=== PATIENT | female | born 1970 | race Caucasian/White ===

== ENCOUNTER → 2017-09-01 | Outpatient (CLI) | payer BC ==
[2017-09-01 14:22] VITALS: BP 178/83; PULSE 95; RESP 16; TEMP 98.4; BMI 52.7
--- NOTE | 2017-09-01 14:41 | P.HPBAR ---
Bariatric H&P - History & Physicial H&P Date: 09/01/17 History & Physicial: Visit/CC: INITIAL VISIT Patient initial contact: Initial weight: 139.253 kg Initial weight in pounds: 307.00 Height: 5 ft 4 in Initial BMI: 52.7 Last weight: Current weight: 139.253 kg Current weight in pounds: 307.00 Current BMI: 52.7 [place] body weight (based on NIH guidelines): 54.431 kg Excess body weight loss: 0.0% The patient is a 47 year-old F who presents for Bariatric Assessment. Patient seen today in the bariatric clinic as a new patient. Interested in bariatric surgery. Severed with her weight for the majority overlying. She's tried a variety of different weight loss methods without long-standing success. Patient suffers from diabetes, hypertension, hypothyroid, mild heartburn symptoms. Denies DVT or dysphagia. She has not had a sleep study. She is undecided as it pertains to sleeve gastrectomy and gastric bypass for surgical weight loss. No recent upper endoscopy. Review of Systems The patient denies any acute changes in vision or hearing, no dysphagia or odynophagia, no chest pain or shortness of breath, no dysuria or hematuria, no headache, no runny nose, no rectal bleeding or melena, no unexplained weight loss Past Medical History Past Medical History: Diabetes Mellitus, GERD/Reflux, Hyperlipidemia, Hypertension, Thyroid Disorder Additional Past Medical History / Comment(s): HX. KIDNEY STONE History of Any Multi-Drug Resistant Organisms: None Reported Past Surgical History: Appendectomy, Section, Hysterectomy Additional Past Surgical History / Comment(s): APPENDECTOMY A CHILD Past Anesthesia/Blood Transfusion Reactions: Family History of Problems w/ Anesthesia, Motion Sickness, Postoperative Nausea & Vomiting (PONV) Additional Past Anesthesia/Blood Transfusion Reaction / Comm: RIDES IN FRONT SEAT OF CAR- HAS TROUBLE IN BOATSMOM & DAUGHTER HX. PONV Smoking Status: Never smoker - Past Family History Mother Family Medical History: Cancer Additional Family Medical History / Comment(s): CERVICAL & BREAST CA Surgical - Exam Vital Signs Temp Pulse Resp BP 98.4 F 95 16 178/83 09/01/17 14:17 09/01/17 14:17 09/01/17 14:17 09/01/17 14:17 Physical exam: General: Well-developed, well-nourished HEENT: Normocephalic, sclerae nonicteric Abdomen: Nontender, nondistended Extremities: No edema Neuro: Alert and oriented Bariatric Assessment & Plan (1) Morbid obesity Narrative/Plan: Options of bariatric surgical procedures discussed in detail with the patient. The risks and benefits of both a gastric bypass and the sleeve gastrectomy reviewed. The anticipated percentage of weight loss with both surgeries was reviewed as well. The patient remains somewhat interested in gastric bypass at this time. She is most interested in the slightly increased success rate at remission of diabetes with the gastric bypass versus the sleeve gastrectomy. She is requesting that we help make an appointment for her to see a bariatric surgeon that performs a gastric bypass on a regular basis. Meanwhile she will continue to investigate both surgeries and notify me of her decision. Status: Acute Bariatric Checklist Checklist: Plan: Checklist: EGD: 1. Hiatal hernia: 2. H. Pylori: HgbA1c: Vitamin D: Smoking: Never smoker Primary care physician referral: Psychiatry clearance: Cardiology clearance: Sleep study: Diet journal: VTE risk score: VTE risk level: Rehab needs at discharge:
== END | disposition home or self-care (01) ==
LOC: BARWHC3 13:24
PROVIDERS: ATTEND Surgery
DX: E66.01 Morbid (severe) obesity due to excess calories (principal); E11.9 Type 2 diabetes mellitus without complications; I10 Essential (primary) hypertension; E03.9 Hypothyroidism, unspecified; Z68.43 Body mass index [BMI] 50.0-59.9, adult
CPT/HCPCS: 99211

== ENCOUNTER → 2018-12-13 | Outpatient (CLI) | payer OTHER ==
--- NOTE | 2018-12-14 08:25 | MM ---
Reason for exam: screening (asymptomatic). Baseline mammogram. History: Family history of breast cancer in mother at age 40. Physical Findings: Nurse did not find any significant physical abnormalities on exam. MG Screening Mammo w CAD Bilateral CC and MLO view(s) were taken. There are scattered fibroglandular densities. Circumscribed 5mm nodule central 1 o'clock right breast. 6 month follow up recommended. Focal asymmetry central 11 o'clock left breast. Additional views recommended. These results were verbally communicated with the patient and result sheet given to the patient on 12/13/18. ASSESSMENT: Incomplete: need additional imaging evaluation, BI-RAD 0 RECOMMENDATION: Special view mammogram of the left breast.
--- NOTE | 2018-12-14 08:26 | MM ---
Reason for exam: additional evaluation requested from abnormal screening. History: Family history of breast cancer in mother at age 40. Physical Findings: Breast exam preformed at baseline screening. MG Work Up Mamm w CAD LT Spot compression CC, spot compression MLO, and ML view(s) were taken of the left breast. There are scattered fibroglandular densities. Persisting lobulated 9mm focal asymmetry 12 o'clock left breast middle depth. These results were verbally communicated with the patient and result sheet given to the patient on 12/13/18. ASSESSMENT: Incomplete: need additional imaging evaluation, BI-RAD 0 RECOMMENDATION: Ultrasound of the left breast. (11-1 o'clock)
--- NOTE | 2018-12-14 08:28 | USB ---
Reason for exam: additional evaluation requested from abnormal screening. History: Family history of breast cancer in mother at age 40. US Breast Workup Limited LT Left limited breast ultrasound including focal area of concern, retroareolar and axilla demonstrates no cystic or solid lesion seen. Scanned 11-3 o'clock. 6 month follow up right breast mammogram recommended. These results were verbally communicated with the patient and result sheet given to the patient on 12/13/18. ASSESSMENT: Suspicious, BI-RAD 4 RECOMMENDATION: Surgical consultation and stereotactic core biopsy of the left breast. Called with mammographic findings and has scheduled an appointment for the patient for 01/06/19 at 10:[address] Castorena. Biopsy scheduled for 12/30/18 at 8:00. PRELIMINARY REPORT CALLED AND FAXED TO DR. CASTORENA ON 12/13/18.
== END | disposition home or self-care (01) ==
LOC: RADMAMWWP 13:37
PROVIDERS: ATTEND Internal Medicine
DX: R92.8 Other abnormal and inconclusive findings on diagnostic imaging of breast (principal)
CPT/HCPCS: 77065; 77067

== ENCOUNTER → 2018-12-30 | Day surgery (SDC) | payer OTHER ==
[2018-12-30 07:29] VITALS: BMI 38.6
[2018-12-30 09:12] VITALS: BP 130/87; PULSE 56; RESP 16; TEMP 97.7
--- NOTE | 2018-12-30 14:09 | MM ---
EXAMINATION TYPE: MG stereo VAD BX LT DATE OF EXAM: 12/30/2018 COMPARISON: Mammogram dated 12/13/2018 CLINICAL HISTORY: Upper central left mid depth 5 mm mass for which stereotactic biopsy was recommended as there is no sonographic correlate. TECHNIQUE: Stereotactic guided core biopsy of left breast. FINDINGS: The procedure of stereotactic guided core biopsy was explained to the patient. Benefits, alternatives, and risks were discussed. An informed consent was then obtained. A procedural timeout was performed. The shortness pathway for biopsy was chosen. Shortness pathway was medial to lateral approach. The shortness pathway for biopsy was chosen. Shortness pathway was medial to lateral approach. Preprocedural localization images were obtained and and upper central left mid depth mass measuring 5 mm was demonstrated. Coordinates were calculated. Subsequently 10 cc of lidocaine without epinephrine was utilized to anesthetize the skin and deeper subcutaneous soft tissues. The needle was advanced to the appropriate depth. Prefire images were obtained ensuring appropriate location. Postfire injection of 4 cc of lidocaine with epinephrine was utilized to anesthetize the site of biopsy. A vacuum assisted biopsy gun was used to obtain 7 core samples. The patient tolerated the procedure well without any immediate complication. The patient was kept in the radiology department for short stay after the procedure and then discharged home in stable condition. Targeted calcifications are identified in specimen mammogram. Post biopsy mammogram shows the biopsy marker to be located appropriately on the CC view (appears inferior to the biopsy location on MLO view with biopsy air are seen cranial to this at the primary site of biopsy. IMPRESSION: SUCCESSFUL, UNCOMPLICATED STEREOTACTIC GUIDED CORE BIOPSY OF A 5 MM MASS IN THE UPPER CENTRAL LEFT BREAST AT MIDDLE DEPTH, FULL PATHOLOGY RESULTS TO FOLLOW. OF NOTE THE BIOPSY MARKER APPEARS DISPLACED INFERIOR TO THE BIOPSY CAVITY. Pathology Results: Benign LEFT BREAST, STEREOTACTIC CORE BIOPSY: Fibroadenomatoid hyperplasia with calcifications in a background of fibrocystic changes. Recommendation Follow up mammogram of the left breast in [address] [facility]
== END ==
LOC: RADMAMWWP 07:04
PROVIDERS: ATTEND Internal Medicine
DX: N62 Hypertrophy of breast (principal); N60.12 Diffuse cystic mastopathy of left breast; R92.1 Mammographic calcification found on diagnostic imaging of breast; R92.8 Other abnormal and inconclusive findings on diagnostic imaging of breast
CPT/HCPCS: 88305; 19081; A4648; J2001

== ENCOUNTER → 2019-09-12 | Outpatient (CLI) | payer OTHER ==
--- NOTE | 2019-09-13 08:14 | MM ---
Reason for exam: follow-up at short interval from prior study. Last mammogram was performed 9 months ago. History: Patient is postmenopausal. Family history of breast cancer in mother at age 40. Benign MG stereo VAD BX LT of the left breast, December 30, 2018. Physical Findings: Nurse did not find any significant physical abnormalities on exam. MG Diagnostic Mammo w CAD SARWAT Bilateral CC and MLO view(s) were taken. Prior study comparison: December 13, 2018, left breast MG work up mamm w CAD LT. December 13, 2018, bilateral MG screening mammo w CAD. The breast tissue is heterogeneously dense. This may lower the sensitivity of mammography. Stable benign calcifications. There is chronic nodularity bilaterally. There is no dominant lesion. These results were verbally communicated with the patient and result sheet given to the patient on 09/12/19. ASSESSMENT: Benign, BI-RAD 2 RECOMMENDATION: Routine screening mammogram of both breasts in 1 year.
== END | disposition home or self-care (01) ==
LOC: RADMAMWWP 07:42
PROVIDERS: ATTEND Surgery
DX: R92.8 Other abnormal and inconclusive findings on diagnostic imaging of breast (principal)
CPT/HCPCS: 77066

== ENCOUNTER → 2021-03-14 | Outpatient (CLI) | payer BC ==
--- NOTE | 2021-03-14 12:31 | MM ---
Reason for exam: screening (asymptomatic). Last mammogram was performed 1 year and 6 months ago. History: Patient is postmenopausal. Family history of breast cancer in mother at age 40. Benign MG stereo VAD BX LT of the left breast, December 30, 2018. Physical Findings: A clinical breast exam by your physician is recommended on an annual basis and results should be correlated with mammographic findings. MG Screening Mammo w CAD Bilateral CC and MLO view(s) were taken. Prior study comparison: September 12, 2019, bilateral MG diagnostic mammo w CAD SARWAT. December 13, 2018, left breast MG work up mamm w CAD LT. There are scattered fibroglandular densities. There is no discrete abnormality. No significant changes when compared with prior studies. ASSESSMENT: Negative, BI-RAD 1 RECOMMENDATION: Routine screening mammogram of both breasts in 1 year.
== END | disposition home or self-care (01) ==
LOC: RADMAMWWP 07:19 → MERGE 07:40
PROVIDERS: ATTEND Internal Medicine
DX: Z12.31 Encounter for screening mammogram for malignant neoplasm of breast (principal)
CPT/HCPCS: 77067